=== PATIENT | female | born 1990 | race Caucasian/White ===

== ENCOUNTER 2017-11-23 10:03 | Inpatient (IN) ==
[2017-11-23 11:23] LABS: Basophils % 0.2 % (0.0-0.8); Eosinophils # 0.3 10*3/uL (0.0-0.87); Eosinophils % 3.9 % (0.00-10.9); Hematocrit 39.9 VOL% (35.7-47.0); Hemoglobin 13.6 GM/DL (12.0-16.0); Immature Granulocytes % 0.3 %; Immature Granulocytes Absolute 0.02 #; Lymphocytes # 2.1 10*3/uL (1.4-4.0); Lymphocytes % 32.6 % (21.3-54.2); Mean Corpuscular HGB Conc 34.1 GM/DL (32-36); Mean Corpuscular Hemoglobin 30 PG (27-34); Mean Corpuscular Volume 88.3 FL (87-102); Mean Platelet Volume 9.9 FL (9.6-12.0); Monocytes # 0.3 10*3/uL (0.11-0.8); Neutrophils # 3.7 10*3/uL (1.4-7.4); Platelet Count 234 T/CUMM (130-400); Red Blood Count 4.52 MC/CUMM (3.8-5.5); Red Cell Distribution Width 12.7 % (9.3-17.3); White Blood Count 6.4 T/CUMM (4-12)
[2017-11-23 11:56] LABS: Albumin 3.6 G/DL (3.4-5.0); Calcium 8.9 MG/DL (8.5-10.1); Osmolality,Calculated 278.3 MOS/KG (273-304); Potassium 4.1 MMOL/L (3.5-5.1); Total Protein 7.2 G/DL (6.4-8.3)
[2017-11-23] MEDS ORDERED: ONDANSETRON 4 MG/2 ML VIAL IV PRN (12:26)
[2017-11-23] MEDS ORDERED: ACETAMINOPHEN 325 MG TABLET PO PRN (12:26)
[2017-11-23] MEDS: DEXTROSE 5% NACL 0.45% 1,000 ML IV SCH (13:32)
[2017-11-23] MEDS: PANTOPRAZOLE 40 MG VIAL IV SCH (13:33)
[2017-11-23] MEDS: cefOXitin 2,000 MG in SYRINGE 1 EACH IV SCH ×2 (13:33→18:32)
[2017-11-24] MEDS: DEXTROSE 5% NACL 0.45% 1,000 ML IV SCH ×4 (01:12→23:22)
[2017-11-24] MEDS: cefOXitin 2,000 MG in SYRINGE 1 EACH IV SCH ×5 (02:18→23:46)
[2017-11-24] MEDS ORDERED: LIDOCAINE 1%/EPI INJ 20 ML VIAL ONE (06:39)
[2017-11-24] MEDS ORDERED: BUPIVACAINE MPF 0.25% /EPI 30 ML VIAL ONE (06:39)
[2017-11-24] MEDS ORDERED: TISSUE ADHESIVE 1 EACH APPLICATOR TOP ONE (06:39)
[2017-11-24] MEDS: PANTOPRAZOLE 40 MG VIAL IV SCH (08:21)
[2017-11-24 08:24] LABS: Albumin 3.2 G/DL (3.4-5.0); Bilirubin,Total 1.6 MG/DL (0.2-1.0); Calcium 8.5 MG/DL (8.5-10.1); Osmolality,Calculated 279.1 MOS/KG (273-304); Potassium 3.8 MMOL/L (3.5-5.1); Total Protein 6.6 G/DL (6.4-8.3)
[2017-11-24] MEDS ORDERED: ONDANSETRON 4 MG/2 ML VIAL IV PRN (12:16)
[2017-11-24] MEDS ORDERED: HYDROmorphone 2 MG/1 ML VIAL ONE (12:17)
[2017-11-24] MEDS ORDERED: ONDANSETRON 4 MG/2 ML VIAL ONE ×2 (12:17→13:33)
[2017-11-24] MEDS: HYDROmorphone 2 MG/1 ML VIAL IV PRN ×4 (12:20→14:57)
[2017-11-24] MEDS ORDERED: SEVOFLURANE 1 UNIT/15 MINUTE INH ONE (13:32)
[2017-11-24] MEDS ORDERED: fentaNYL 100 MCG/2 ML VIAL ONE (13:32)
[2017-11-24] MEDS ORDERED: MIDAZOLAM 2 MG/2 ML VIAL ONE (13:32)
[2017-11-24] MEDS ORDERED: PROPOFOL 200 MG/20 ML VIAL IV ONE (13:32)
[2017-11-24] MEDS ORDERED: PHENYLEPHRINE 1 MG/10 ML SYRINGE IV ONE (13:33)
[2017-11-24] MEDS ORDERED: GLYCOPYRROLATE 0.4 MG/2 ML VIAL ONE (13:33)
[2017-11-24] MEDS ORDERED: DEXAMETHASONE 10 MG/1 ML VIAL ONE (13:33)
[2017-11-24] MEDS ORDERED: KETOROLAC 30 MG/1 ML VIAL ONE (13:33)
[2017-11-24] MEDS ORDERED: ACETAMINOPHEN 1,000 MG/100 ML VIAL IV ONE (13:33)
[2017-11-24] MEDS ORDERED: ROCURONIUM 100 MG/10 ML VIAL IV ONE (13:34)
[2017-11-24] MEDS ORDERED: NEOSTIGMINE 10 MG/10 ML VIAL ONE (13:34)
[2017-11-25] MEDS: cefOXitin 2,000 MG in SYRINGE 1 EACH IV SCH (05:41)
[2017-11-25] MEDS: DEXTROSE 5% NACL 0.45% 1,000 ML IV SCH (05:46)
[2017-11-25] MEDS: PANTOPRAZOLE 40 MG VIAL IV SCH (08:15)
[2017-11-25 08:17] VITALS: BP 100/50
== END 2017-11-25 09:58 | disposition home or self-care (01) ==
LOC: N.ED 10:03 → N.EDINP 12:26 → N.3E 12:48
PROVIDERS: ADMIT Surgery; ATTEND Surgery